=== PATIENT | female | born 1960 | race Two or more races ===

== ENCOUNTER 2021-11-29 01:44 | Inpatient (IN) | payer MEDICARE, OTHER ==
[~2021-11-29] VITALS: Ht 154.9 cm; Wt 62.6 kg
[2021-11-29 04:50] VITALS: BP 153/88
--- NOTE | 2021-11-29 04:50 | NUR ---
GPS EXPLOSIVE ORDNANCE HANDLER NOTES: ADMITTED A 61-Y/O, FEMALE, FROM [facility]. ADMITTED ON 5150 FOR DTS/GD. PER HOLD, PATIENT WAS CONFUSED, DISORIENTED, DOES NOT KNOW WHERE SHE LIVES, HAS NOT BEEN TAKING HER MEDICATIONS. PT. ADMITS TO HEARING VOICES. UPON FACE TO FACE ASSESSMENT, PATIENT IS ALERT AND ORIENTED X2, ANXIOUS, HYPERACTIVE, HYPERVERBAL, DISORGANIZED, CONFUSED, HER SPEECH IS PRESSURED AND EYE CONTACT IS INTENSE. DENIED SI/HI/AVH AT THIS TIME. SKIN ASSESSMENT DONE. SKIN IS CLEAR. HANDBOOK AND PRESCRIPTION MEDICATIONS GUIDE GIVEN TO PATIENT. PATIENT HAS BEEN ORIENTED TO UNIT POLICY. BELONGINGS WERE INVENTORIED AND CHECKED FOR CONTRABAND. PATIENT REFUSED TO SIGN ALL ADMISSION PAPER WORKS. PATIENT IS UNDER THE PSYCHIATRIC CARE OF DR. SANTILLAN AND MEDICAL CARE OF DR. SMITH. BED IN LOW AND LOCKED POSITION. SIDE RAILS UP X2. SAFETY PRECAUTIONS MAINTAINED. WILL CONTINUE TO MONITOR Q15 MINS FOR MOOD, SAFETY AND BEHAVIOR. CONTACTED BATSHEVA SY NEXT OF KIN AT [phone] BUT UNABLE TO LEAVE VOICE MESSAGE. VOICEMAIL IS FULL. WILL ENDORSE TO DAY SHIFT NURSE FOR CONTINUITY OF CARE.
[2021-11-29] MEDS ORDERED: MAGNESIUM HYDROXIDE 30 ML UDC PO PRN (05:30)
[2021-11-29] MEDS ORDERED: MAG HYDROX/AL HYDROX/SIMETH 30 ML UDC PO PRN (05:30)
[2021-11-29] MEDS ORDERED: BLOOD SUGAR DIAGNOSTIC 1 EACH STRIP IN ONE (05:30)
[2021-11-29] MEDS ORDERED: LORAZEPAM 0.5 MG TABLET PO PRN (05:30)
[2021-11-29] MEDS ORDERED: ACETAMINOPHEN 325 MG TABLET PO PRN (05:30)
[2021-11-29] MEDS ORDERED: TRAZ-257 PO (06:37)
[2021-11-29] MEDS ORDERED: AMLO-212 PO (06:37)
[2021-11-29] MEDS ORDERED: ARIP10TA9 PO (06:37)
[2021-11-29] MEDS ORDERED: DIPH50CA4 PO (06:37)
[2021-11-29] MEDS ORDERED: DIVA-78 PO (06:37)
[2021-11-29] MEDS ORDERED: BENZ1TAB7 PO (06:37)
[2021-11-29] MEDS ORDERED: OXCA300T15 PO (06:37)
[2021-11-29] MEDS ORDERED: ESCI10TA PO (06:37)
[2021-11-29] MEDS ORDERED: ARIP1064 IM (06:37)
[2021-11-29 08:00] VITALS: BP 153/90
--- NOTE | 2021-11-29 09:14 | NUR ---
GRACY Clinical Note: Patient placed on a 5150 hold for danger to herself and GD. Patient has been having visual/auditory hallucinations and has not been taking her medications at home. Patient currently states that she lives at home located at [address], [place] [address]; ([phone]). Pt would want to return back home upon dc.
--- NOTE | 2021-11-29 09:14 | NUR ---
GRACY Initial Discharge Plan: Patient currently states that she lives at home located at [address] [place] [address]; ([phone]). Pt would want to return back home upon dc. GRACY will work with the MD, treatment team, and family to help coordinate appropriate dishcharge.
--- NOTE | 2021-11-29 09:57 | NUR ---
Treatment Plan: Pt refused to sign treatment plan and was very paranoid.
--- NOTE | 2021-11-29 11:02 | NUR ---
GRACY Family: SW contacted pt's brother Nicanor ([phone]) and spoke to him briefly notifying that pt is at [facility]. He stated he will contact this feature writer after his meeting.
[2021-11-29] MEDS: DIVALPROEX SODIUM 500 MG TABLET.DR PO SCH ×2 (13:52→21:40)
[2021-11-29 16:00] VITALS: BP 128/70
[2021-11-29] MEDS: ARIPIPRAZOLE 5 MG TABLET PO SCH (16:26)
[2021-11-29] MEDS: BENZTROPINE MESYLATE (1 MG) 1 MG TABLET PO SCH (16:26)
[2021-11-29] MEDS: OXCARBAZEPINE 150 MG TABLET PO SCH (16:26)
--- NOTE | 2021-11-29 17:49 | NUR ---
RN-NOTES PATIENT IN THE ROOM AWAKE,ALERT X1 GUARDED,PATIENT NOTED WITH EASILY ANGRY BEHAVIOR ,DEMANDING WITH EPISODE OF TALKING, SINGING TO SELF. PATIENT VERBALIZED HEARING VOICES BUT SHE CANNOT TELL ME WHAT ARE THE VOICES ARE. NEEDS FREQUENT REDIRECTIONS AND REASSURANCE. COMPLIANT WITH MEDICATIONS.ALL NEEDS ATTENDED AND ANTICIPATED. WILL CONT. MONITORING FOR SAFETY AND BEHAVIOR. AMBULATORY STEADY GAIT.WILL ENDORSE TO INCOMING NURSE FOR CONTINUITY OF CARE.
--- NOTE | 2021-11-29 19:46 | NUR ---
GPS RN OPENING NOTES: RECEIVED PATIENT AMBULATING IN HALLWAY, A/O X1. APPROPRIATE AFFECT, LABILE, HYPERVERBAL, DISORGANIZED, DISORIENTED, CONFUSED, LOOSE ASSOCIATIONS, RESTLESS, ANXIOUS, RESPONDING TO INTERNAL STIMULI. DENIES PAIN, DENIES SI AT THIS TIME. NO S/S OF DISTRESS. RESPIRATION EVEN AND UNLABORED WITH EQUAL RISE AND FALL OF THE CHEST, ON ROOM AIR. OFFERED FLUID AND SNACKS TOLERATED. WILL CONTINUE TO MONITOR Q15 FOR MOOD, SAFETY AND BEHAVIOR.
[2021-11-29 20:00] VITALS: BP 148/75
[2021-11-29] MEDS: TEMAZEPAM 7.5 MG CAPSULE PO PRN (22:08)
--- NOTE | 2021-11-29 22:09 | NUR ---
GPS RN NOTES: PATIENT REQUESTED FOR SLEEP MEDICATION. RESTORIL 7.5MG GIVEN PO AT [phone]. WILL CONTINUE TO MONITOR.
[2021-11-30 07:12] LABS: ALBUMIN 3.2 g/dL (3.4-5.0); BILIRUBIN,TOTAL 0.3 mg/dL (0.2-1.0); CALCIUM, SERUM 8.6 mg/dL (8.5-10.1); CREATININE 0.7 mg/dL (0.6-1.3); POTASSIUM 3.8 mmol/L (3.5-5.1); TOTAL PROTEIN, SERUM 6.8 g/dL (6.4-8.2)
[2021-11-30 07:18] LABS: CHOLESTEROL 226 mg/dL (<200); HDL CHOLESTEROL 77 mg/dL (40-60); LDL 122 mg/dL (0-99); TRIGLYCERIDES 116 mg/dL (30-150)
[2021-11-30 08:00] VITALS: BP 128/76
[2021-11-30] MEDS: DIVALPROEX SODIUM 500 MG TABLET.DR PO SCH ×2 (08:17→20:41)
[2021-11-30] MEDS: OXCARBAZEPINE 150 MG TABLET PO SCH ×2 (08:17→16:25)
[2021-11-30] MEDS: BENZTROPINE MESYLATE (1 MG) 1 MG TABLET PO SCH ×2 (08:17→16:25)
[2021-11-30] MEDS: ARIPIPRAZOLE 5 MG TABLET PO SCH ×2 (08:17→16:25)
[2021-11-30] MEDS: AMLODIPINE BESYLATE 5 MG TABLET PO SCH (08:19)
--- NOTE | 2021-11-30 11:40 | NUR ---
GRACY Family Contact: GRACY spoke with patient's brother Nicanor ([phone]) who wants pt to placed at a nursing facility. He stated that he is searching for a facility of his own and will let this racebook writer know which one by 12/04. GRACY gave him options he reported first he would want to try facilities nearby him before this racebook writer finding facilities in the [place] location.
--- NOTE | 2021-11-30 15:10 | NUR ---
RN-NOTES PATIENT WAS FOUND SITTING IN ROOM [address]B DOOR. PER PATIENT SHE TRIPPED FROM HER SHOES AND HIT HER LEFT UPPER ARM ON THE ROOM DOOR . PATIENT WAS ASSISTED UP BY TWO STAFF. PATIENT COMPLAINED PAIN ON L UPPER ARM AND BILATERAL FOOT. OFFERED TYLENOL BUT PATIENT'S STATED" NO NEED FOR TYLENOL, I'M OK". PATIENT ABLE TO AMBULATE WITH STEADY GAIT. NO SKIN TEAR OR DISCOLORATION NOTED ON THE SAID SITES.LUMBER STRAIGHTENED, PROJECT ARCHITECT, DR. SANTILLAN (PSYCHIATRIST) ,MADE AWARE OF THE INCIDENT.LISSETTE GRAY ( COMMODITY LOAN CLERK) T.O ORDER OF X-RAY ON LEFT UPPER ARM AND BILATERAL FOOT. PATIENT'S BROTHER AVELINO SHEN WAS MADE AWARE. WILL CONT. MONITORING FOR ANY ADVERSE CHANGES.
[2021-11-30 16:00] VITALS: BP 132/54
--- NOTE | 2021-11-30 18:10 | NUR ---
RN-NOTES PATIENT LAYING IN BED INTERMITTENTLY SLEEPING,EASILY AROUSED ,DENIES ANY DISCOMFORT AT THIS TIME. NO ACUTE DISTRESS NOTED .COMPLIANT WITH MEDICATIONS.PATIENT IS AMBULATORY STEADY GAIT. ALL NEEDS ATTENDED AND ANTICIPATED. WILL CONT. MONITORING FOR SAFETY AND BEHAVIOR. WILL ENDORSE TO INCOMING NURSE FOR CONTINUITY OF CARE.
--- NOTE | 2021-11-30 19:30 | NUR ---
GPS RN OPENING NOTES: RECEIVED PATIENT AMBULATING IN HALLWAY, A/O X1-2. APPROPRIATE AFFECT, LABILE, DISORGANIZED, DISORIENTED, CONFUSED, LOOSE ASSOCIATIONS, RESTLESS, ANXIOUS, NEEDY. ABLE TO FOLLOW REDIRECTION. PATIENT GIVEN WALKER TO AMBULATE D/T UNSTEADY GAIT. DENIES PAIN, DENIES SI AT THIS TIME. NO S/S OF DISTRESS. RESPIRATION EVEN AND UNLABORED WITH EQUAL RISE AND FALL OF THE CHEST, ON ROOM AIR. OFFERED FLUID AND SNACKS TOLERATED. WILL CONTINUE TO MONITOR Q15 FOR MOOD, SAFETY AND BEHAVIOR.
[2021-11-30 20:00] VITALS: BP 137/67
--- NOTE | 2021-12-01 06:49 | NUR ---
GPS RN CLOSING NOTES: PATIENT AWAKE, A/O X-2. PATIENT SLEPT 8HRS THIS SHIFT. NO S/S OF DISTRESS. RESPIRATION EVEN AND UNLABORED WITH EQUAL RISE AND FALL OF THE CHEST, ON ROOM AIR. ALL PATIENT CARE NEEDS HAVE BEEN MET ANTICIPATED. WILL CONTINUE TO MONITOR Q15 FOR SAFETY, MOOD AND BEHAVIOR AND ENDORSE TO AM SHIFT.
[2021-12-01 08:00] VITALS: BP 137/79
--- NOTE | 2021-12-01 08:46 | NUR ---
SNF Referral: GRACY sent clinicals to CJ admin from [facility] ([phone]) for placement. SW sent H & P, progress notes, and medication list.
[2021-12-01] MEDS: BENZTROPINE MESYLATE (1 MG) 1 MG TABLET PO SCH ×2 (09:00→17:05)
[2021-12-01] MEDS: OXCARBAZEPINE 150 MG TABLET PO SCH ×3 (09:00→17:05)
[2021-12-01] MEDS: ARIPIPRAZOLE 5 MG TABLET PO SCH ×2 (09:00→17:05)
[2021-12-01] MEDS: DIVALPROEX SODIUM 500 MG TABLET.DR PO SCH ×2 (09:00→20:56)
[2021-12-01] MEDS: AMLODIPINE BESYLATE 5 MG TABLET PO SCH (09:01)
--- NOTE | 2021-12-01 09:19 | NUR ---
SNF Contact: SW received a call from admin from [facility] ([phone]) who stated pt is accepted.
--- NOTE | 2021-12-01 14:10 | NUR ---
Assumed Care: Pt. is in the dining room, disorganized, needy, argumentative and confused. Needs attended and will continue to monitor for safety.
--- NOTE | 2021-12-01 15:12 | NUR ---
Pt. denies abdomen pain at this time and said she ok. Urine collected and sent to labs.
[2021-12-01 16:00] VITALS: BP 130/67
--- NOTE | 2021-12-01 16:30 | NUR ---
GPS RN NOTES RECEIVED REPORT AND ASSUMED CARE OF THIS PATIENT WHO IS LAYING IN BED WITH NO AGITATION AT THIS TIME. WILL CONTINUE TO MONITOR.
--- NOTE | 2021-12-01 19:00 | NUR ---
GPS RN CLOSING NOTES PATIENT ALERT AND ORIENTED, NO COMPLAINTS OF PAIN OR DISCOMFORT AT THIS TIME, WALKING IN HALLWAY. ALL NEEDS MET. REPORT GIVEN TO FURNITURE AND BEDDING INSPECTOR FOR KATELYNN.
--- NOTE | 2021-12-01 19:40 | NUR ---
GPS RN OPENING NOTES: RECEIVED PATIENT IN ROOM CHATTING WITH VISITOR, A/O X2. APPROPRIATE AFFECT, DISORGANIZED. ABLE TO FOLLOW REDIRECTION. DENIES V/A HALLUCINATIONS. DENIES PAIN, DENIES SI AT THIS TIME. NO S/S OF DISTRESS. RESPIRATION EVEN AND UNLABORED WITH EQUAL RISE AND FALL OF THE CHEST, ON ROOM AIR. OFFERED FLUID AND SNACKS TOLERATED. WILL CONTINUE TO MONITOR Q15 FOR MOOD, SAFETY AND BEHAVIOR.
[2021-12-01 20:00] VITALS: BP 157/74
[2021-12-02 06:29] LABS: BASOPHILS % (AUTO) 0.6 % (0.0-2.0); EOSINOPHILS % (AUTO) 4.4 % (0.0-6.0); HEMATOCRIT 39 % (33-45); HEMOGLOBIN 12.7 g/dL (11.5-14.8); LYMPHOCYTES # (AUTO) 3.1 K/uL (0.8-4.8); LYMPHOCYTES % (AUTO) 43.9 % (20.0-44.0); MEAN CORPUSCULAR HGB CONC 33 g/dl (31.0-36.0); MEAN CORPUSCULAR VOLUME 89 fL (82-100); MONOCYTES # (AUTO) 0.5 K/uL (0.1-1.30); MONOCYTES % (AUTO) 7.8 % (2.0-12.0); NEUTROPHILS % (AUTO) 43.3 % (43.0-81.0); PLATELET COUNT (AUTO) 354 K/uL (150-450); RED BLOOD CELL COUNT(AUTO) 4.36 MIL/uL (4.0-5.2)
--- NOTE | 2021-12-02 06:44 | NUR ---
GPS RN CLOSING NOTES: PATIENT IS AWAKE, A/O X-2. AMBULATING IN HALLWAY. PATIENT SLEPT 7HRS THIS SHIFT. NO S/S OF DISTRESS. RESPIRATION EVEN AND UNLABORED WITH EQUAL RISE AND FALL OF THE CHEST, ON ROOM AIR. ALL PATIENT CARE NEEDS HAVE BEEN MET ANTICIPATED. WILL CONTINUE TO MONITOR Q15 FOR SAFETY, MOOD AND BEHAVIOR AND ENDORSE TO AM SHIFT.
[2021-12-02 07:17] LABS: ALBUMIN 3.6 g/dL (3.4-5.0); BILIRUBIN,TOTAL 0.2 mg/dL (0.2-1.0); CALCIUM, SERUM 8.6 mg/dL (8.5-10.1); CREATININE 0.9 mg/dL (0.6-1.3); TOTAL PROTEIN, SERUM 7.7 g/dL (6.4-8.2)
[2021-12-02 08:00] VITALS: BP 141/72
[2021-12-02] MEDS: DIVALPROEX SODIUM 500 MG TABLET.DR PO SCH ×2 (08:29→20:04)
[2021-12-02] MEDS: BENZTROPINE MESYLATE (1 MG) 1 MG TABLET PO SCH ×2 (08:29→16:25)
[2021-12-02] MEDS: OXCARBAZEPINE 150 MG TABLET PO SCH ×3 (08:29→16:25)
[2021-12-02] MEDS: ARIPIPRAZOLE 5 MG TABLET PO SCH ×2 (08:29→16:25)
[2021-12-02] MEDS: AMLODIPINE BESYLATE 5 MG TABLET PO SCH (08:30)
[2021-12-02 16:00] VITALS: BP 145/54
--- NOTE | 2021-12-02 18:10 | NUR ---
RN-NOTES PATIENT VISIBLE IN THE UNIT A/O X2 ,GUARDED NO ACUTE DISTRESS NOTED .COMPLIANT WITH MEDICATIONS.PATIENT IS AMBULATORY WITH WALKER. NOTED PATIENT WITH HYPERVERBAL, NEEDY,FORGETFUL BEHAVIOR. NEEDS FREQUENT REDIRECTIONS AND INSTRUCTIONS. ALL NEEDS ATTENDED AND ANTICIPATED. WILL CONT. MONITORING FOR SAFETY AND BEHAVIOR. WILL ENDORSE TO INCOMING NURSE FOR CONTINUITY OF CARE.
[2021-12-02 20:16] VITALS: BP 145/69
[2021-12-03 08:00] VITALS: BP 145/76
--- NOTE | 2021-12-03 08:00 | NUR ---
RN OPENING NOTES: RECEIVED PATIENT IN ROOM EATING BREAKFAST, A/O X2-3. APPROPRIATE AFFECT. ABLE TO FOLLOW DIRECTION. DENIES V/A HALLUCINATIONS. DENIES PAIN, DENIES SI AT THIS TIME. NO S/S OF DISTRESS. RESPIRATION EVEN AND UNLABORED WITH EQUAL RISE AND FALL OF THE CHEST, ON ROOM AIR. WILL CONTINUE TO MONITOR FOR MOOD, SAFETY AND BEHAVIOR.
[2021-12-03] MEDS: AMLODIPINE BESYLATE 5 MG TABLET PO SCH (08:45)
[2021-12-03] MEDS: OXCARBAZEPINE 150 MG TABLET PO SCH ×3 (08:45→17:05)
[2021-12-03] MEDS: ARIPIPRAZOLE 5 MG TABLET PO SCH ×2 (08:45→17:00)
[2021-12-03] MEDS: DIVALPROEX SODIUM 500 MG TABLET.DR PO SCH ×2 (08:46→20:06)
[2021-12-03] MEDS: BENZTROPINE MESYLATE (1 MG) 1 MG TABLET PO SCH ×2 (08:46→17:05)
[2021-12-03 16:00] VITALS: BP 153/75
--- NOTE | 2021-12-03 17:41 | NUR ---
RN NOTES- PT REFUSED ABILIFY PATIENT REFUSED ABILIFY AT 17:00, RN EXPLAINED RISK AND BENEFITS, PATIENT STILL REFUSED. WILL CONTINUE TO MONITOR.
[2021-12-03 20:05] VITALS: BP 144/74
[2021-12-03] MEDS: TEMAZEPAM 7.5 MG CAPSULE PO PRN (23:08)
--- NOTE | 2021-12-03 23:08 | NUR ---
RN NOTES ADMINISTERED TEMAZEPAM FOR INSOMNIA. VS WNL. WILL CONTINUE TO MONITOR.
[2021-12-04 08:00] VITALS: BP 152/70
[2021-12-04] MEDS: DIVALPROEX SODIUM 500 MG TABLET.DR PO SCH ×2 (08:09→21:28)
[2021-12-04] MEDS: AMLODIPINE BESYLATE 5 MG TABLET PO SCH (08:09)
[2021-12-04] MEDS: ARIPIPRAZOLE 5 MG TABLET PO SCH (08:09)
[2021-12-04] MEDS: OXCARBAZEPINE 150 MG TABLET PO SCH ×3 (08:10→17:24)
[2021-12-04] MEDS: BENZTROPINE MESYLATE (1 MG) 1 MG TABLET PO SCH (08:10)
--- NOTE | 2021-12-04 09:32 | NUR ---
RN-CO: PATIENT IS RESTLESS BUT COMPLIANT WITH MEDICATIONS. FOCUS ON MEDICATIONS. PREOCCUPIED WITH HER OWN THOUGHTS. ANXIOUS AND CONSTANTLY ASKING IRRELIVANT QUESTIONS. NOTED TALKING TO UNSEEN OTHERS.I WILL CONTINUE TO MONITOR.
[2021-12-04] MEDS ORDERED: diphenhydrAMINE HCL 50 MG CAPSULE PO PRN (11:30)
--- NOTE | 2021-12-04 15:28 | NUR ---
Court Notification: SW contacted pt's brother Nicanor ([phone]) and left a voicemail of pt's 1157 hearing today.
[2021-12-04 16:00] VITALS: BP 151/68
--- NOTE | 2021-12-04 16:18 | NUR ---
Court Hearing: Patient's court hearing for [id number] was today and it was upheld for GD.
--- NOTE | 2021-12-04 19:40 | NUR ---
GPS RN NOTES: RECEIVED PATIENT IN ROOM, A/O X2. APPROPRIATE AFFECT, DISORGANIZED, RESPONDING TO INTERNAL STIMULI. REORIENTED PATIENT TO PRESENT SITUATION. DENIES PAIN, DENIES SI AT THIS TIME. NO S/S OF DISTRESS. RESPIRATION EVEN AND UNLABORED WITH EQUAL RISE AND FALL OF THE CHEST, ON ROOM AIR. OFFERED FLUID AND SNACKS TOLERATED. BED IN LOW LOCKED POSITION, SIDE RAILS UP X2 FOR SAFETY. WILL CONTINUE TO MONITOR Q15 FOR MOOD, SAFETY AND BEHAVIOR.
[2021-12-04 20:38] VITALS: BP 140/55
[2021-12-05 08:00] VITALS: BP 134/69
[2021-12-05] MEDS: DIVALPROEX SODIUM 500 MG TABLET.DR PO SCH ×2 (08:09→21:06)
[2021-12-05] MEDS: AMLODIPINE BESYLATE 5 MG TABLET PO SCH (08:09)
[2021-12-05] MEDS: OXCARBAZEPINE 150 MG TABLET PO SCH ×3 (08:09→16:41)
--- NOTE | 2021-12-05 10:19 | NUR ---
RN-CO: PATIENT IS RESTLESS IN AM, PREOCCUPIED OF HER OUTPATIENT DOCTOR AND HER MEDICATIONS. IMPULSIVE BUT REDIRECTABLE. MUMBLING TO SELF AND TALKING TO UNSEEN OTHERS.SEEN BY DR SANTILLAN AND CHANGED HER MEDICATIONS.I WILL MONITOR.
[2021-12-05] MEDS: risperiDONE 1 MG TABLET PO SCH ×2 (10:31→16:41)
--- NOTE | 2021-12-05 13:58 | NUR ---
RN-CO: Patient is positive of covid, Dr Olson and Dr Gould made aware. Dr Gould ordered to isolate pt , Robitussin 5 ml q 4 hr PRN, CXR. Noted and carried out. RN line installation supervisor and director was notified.
[2021-12-05 16:00] VITALS: BP 146/67
[2021-12-05] MEDS: BENZTROPINE MESYLATE (1 MG) 1 MG TABLET PO SCH (16:41)
[2021-12-05] MEDS: GUAIFENESIN/CODEINE 10 ML UDC PO PRN (17:42)
--- NOTE | 2021-12-05 17:43 | NUR ---
RN-CO: Robitussin 5 ml given for c/o cough.
[2021-12-05 20:20] VITALS: BP 139/56
[2021-12-06 08:00] VITALS: BP 146/73
[2021-12-06] MEDS: OXCARBAZEPINE 150 MG TABLET PO SCH ×3 (08:52→16:31)
[2021-12-06] MEDS: DIVALPROEX SODIUM 500 MG TABLET.DR PO SCH ×2 (08:52→20:40)
[2021-12-06] MEDS: BENZTROPINE MESYLATE (1 MG) 1 MG TABLET PO SCH ×2 (08:53→16:31)
[2021-12-06] MEDS: risperiDONE 1 MG TABLET PO SCH ×2 (08:53→16:31)
[2021-12-06] MEDS: AMLODIPINE BESYLATE 5 MG TABLET PO SCH (08:53)
[2021-12-06] MEDS: GUAIFENESIN/CODEINE 10 ML UDC PO PRN (12:22)
--- NOTE | 2021-12-06 12:22 | NUR ---
RN-NOTES NOTED PATIENT COUGHING, ROBITUSSIN AC SYRUP 5ML GIVEN PRN ORDER.
--- NOTE | 2021-12-06 13:25 | NUR ---
RN -NOTES PATIENT SLEEPING WITH BREATHING EVEN AND NONLABORED EASILY AROUSED. NO ACUTE DISTRESS NOTED.
[2021-12-06 16:00] VITALS: BP 145/72
--- NOTE | 2021-12-06 18:17 | NUR ---
RN-NOTES PATIENT IN THE ROOM,A/O X2 FORGETFUL, CALM AND COOPERATIVE. PATIENT ABLE TO MAKE NEEDS KNOWN TO THE STAFF. COMPLIANT WITH MEDICATIONS,NO ACUTE DISTRESS NOTED.AIRBORNE AND CONTACT ISOLATION STRICTLY OBSERVED. AMBULATORY STEADY GAIT.WILL CONT. MONITORING FOR SAFETY AND BEHAVIOR. WILL ENDORSE TO INCOMING NURSE FOR CONTINUITY OF CARE.
[2021-12-06 20:00] VITALS: BP 130/56
[2021-12-07 08:00] VITALS: BP 110/63
[2021-12-07] MEDS: DIVALPROEX SODIUM 500 MG TABLET.DR PO SCH ×2 (08:41→21:24)
[2021-12-07] MEDS: BENZTROPINE MESYLATE (1 MG) 1 MG TABLET PO SCH ×2 (08:41→17:14)
[2021-12-07] MEDS: AMLODIPINE BESYLATE 5 MG TABLET PO SCH (08:41)
[2021-12-07] MEDS: risperiDONE 1 MG TABLET PO SCH ×2 (08:41→17:14)
[2021-12-07] MEDS: OXCARBAZEPINE 150 MG TABLET PO SCH ×3 (08:41→17:14)
[2021-12-07 16:00] VITALS: BP 135/76
--- NOTE | 2021-12-07 17:35 | NUR ---
RN-NOTES PATIENT IN THE ROOM,A/O X2 FORGETFUL, CALM AND COOPERATIVE. PATIENT ABLE TO MAKE NEEDS KNOWN TO THE STAFF. COMPLIANT WITH MEDICATIONS,NO ACUTE DISTRESS NOTED.ON AIRBORNE AND CONTACT ISOLATION FOR COVID POSITIVE. AMBULATORY STEADY GAIT. ALL NEEDS ATTENDED AND ANTICIPATED. WILL CONT. MONITORING FOR SAFETY AND BEHAVIOR. WILL ENDORSE TO INCOMING NURSE FOR CONTINUITY OF CARE.
[2021-12-07 20:00] VITALS: BP 133/66
[2021-12-07] MEDS: GUAIFENESIN/CODEINE 10 ML UDC PO PRN (22:27)
--- NOTE | 2021-12-08 06:05 | NUR ---
RN-NOTES PATIENT RESTING IN HER ROOM, FORGETFUL, CALM AND COOPERATIVE IN SHIFT. COMPLIANT WITH MEDICATIONS,NO ACUTE DISTRESS , PT.ON AIRBORNE AND CONTACT ISOLATION FOR COVID POSITIVE. SAFETY PRECAUTIONS IN PLACED, ALL NEEDS ATTENDED AND ANTICIPATED. WILL CONT. MONITORING FOR SAFETY AND BEHAVIOR. WILL ENDORSE TO INCOMING NURSE FOR CONTINUITY OF CARE.
[2021-12-08 08:00] VITALS: BP 148/70
[2021-12-08] MEDS: AMLODIPINE BESYLATE 5 MG TABLET PO SCH (08:27)
[2021-12-08] MEDS: OXCARBAZEPINE 150 MG TABLET PO SCH ×3 (08:27→17:02)
[2021-12-08] MEDS: DIVALPROEX SODIUM 500 MG TABLET.DR PO SCH ×2 (08:27→21:06)
[2021-12-08] MEDS: BENZTROPINE MESYLATE (1 MG) 1 MG TABLET PO SCH ×2 (08:28→17:02)
[2021-12-08] MEDS: risperiDONE 1 MG TABLET PO SCH ×2 (08:28→17:02)
--- NOTE | 2021-12-08 09:00 | NUR ---
RN NOTE- RECEIVED PATIENT AWAKE, ALERT X1,GUARDED, FORGETFUL, CONFUSED,NOTED WITH EPISODE OF TALKING TO SELF.NEED REDIRECTIONS AND REASSURANCE.COMPLIANT WITH MEDICATIONS.ALL NEEDS ATTENDED AND ANTICIPATED. WILL CONT. MONITORING FOR SAFETY AND BEHAVIOR.ON AIRBORNE AND CONTACT ISOLATION OBSERVED.
[2021-12-08 16:00] VITALS: BP 150/72
[2021-12-08 20:25] VITALS: BP 139/62
[2021-12-09 08:00] VITALS: BP 110/63
[2021-12-09] MEDS: DIVALPROEX SODIUM 500 MG TABLET.DR PO SCH ×2 (09:00→21:11)
[2021-12-09] MEDS: risperiDONE 1 MG TABLET PO SCH ×2 (09:00→17:00)
[2021-12-09] MEDS: AMLODIPINE BESYLATE 5 MG TABLET PO SCH (09:00)
[2021-12-09] MEDS: OXCARBAZEPINE 150 MG TABLET PO SCH ×3 (09:00→17:00)
[2021-12-09] MEDS: BENZTROPINE MESYLATE (1 MG) 1 MG TABLET PO SCH ×2 (09:00→17:00)
[2021-12-09 16:04] VITALS: BP 130/69
[2021-12-09 20:07] VITALS: BP 136/69
[2021-12-10 08:00] VITALS: BP 150/74
[2021-12-10] MEDS: BENZTROPINE MESYLATE (1 MG) 1 MG TABLET PO SCH ×2 (09:23→17:31)
[2021-12-10] MEDS: AMLODIPINE BESYLATE 5 MG TABLET PO SCH (09:23)
[2021-12-10] MEDS: risperiDONE 1 MG TABLET PO SCH ×2 (09:23→17:30)
[2021-12-10] MEDS: OXCARBAZEPINE 150 MG TABLET PO SCH ×3 (09:23→17:31)
[2021-12-10] MEDS: DIVALPROEX SODIUM 500 MG TABLET.DR PO SCH ×2 (09:23→23:26)
[2021-12-10 16:00] VITALS: BP 152/73
--- NOTE | 2021-12-10 19:50 | NUR ---
GPS RN NOTE RECEIVED PATIENT IN BED; AWAKE, ALERT X1, GUARDED AND CONFUSED. ON AIRBORNE AND CONTACT ISOLATION OBSERVED. NEED REDIRECTIONS AND REASSURANCE. COMPLIANT WITH MEDICATIONS. ALL NEEDS ATTENDED AND ANTICIPATED. WILL CONTINUE MONITORING FOR SAFETY AND BEHAVIOR.
[2021-12-10 20:00] VITALS: BP 148/70
--- NOTE | 2021-12-11 07:30 | NUR ---
PT RECEIVED RESTING COMFORTABLY IN BED. NO S/S OR C/O PAIN OR DISTRESS NOTED. SIDE RAILS UP X2. WILL CONTINUE PLAN OF CARE.
[2021-12-11 08:00] VITALS: BP 146/75
[2021-12-11] MEDS: BENZTROPINE MESYLATE (1 MG) 1 MG TABLET PO SCH ×2 (09:35→16:40)
[2021-12-11] MEDS: DIVALPROEX SODIUM 500 MG TABLET.DR PO SCH ×2 (09:35→21:46)
[2021-12-11] MEDS: OXCARBAZEPINE 150 MG TABLET PO SCH ×3 (09:35→16:40)
[2021-12-11] MEDS: risperiDONE 1 MG TABLET PO SCH ×2 (09:36→16:40)
[2021-12-11] MEDS: AMLODIPINE BESYLATE 5 MG TABLET PO SCH (09:36)
--- NOTE | 2021-12-11 11:17 | NUR ---
GRACY Family Contact: GRACY spoke with patient's brother Nicanor ([phone]) and notified that pt is accepted at [facility]. He is agreeable of this.
[2021-12-11 16:00] VITALS: BP 142/92
--- NOTE | 2021-12-11 18:05 | NUR ---
CHANGE OF SHIFT REPORT PT RESTING COMFORTABLY IN BED. NO S/S OR C/O PAIN OR DISTRESS NOTED. SIDE RAILS UP X2, PT KEPT CLEAN DRY AND COMFORTABLE. NO SIGNIFICANT CHANGE SINCE PREVIOUS SHIFT. WILL GIVE REPORT TO ADALBERTO GRIFFITHS.
[2021-12-11 20:00] VITALS: BP 149/73
[2021-12-12 08:00] VITALS: BP 99/64
[2021-12-12] MEDS: AMLODIPINE BESYLATE 5 MG TABLET PO SCH (09:00)
[2021-12-12] MEDS: BENZTROPINE MESYLATE (1 MG) 1 MG TABLET PO SCH ×2 (09:28→17:22)
[2021-12-12] MEDS: OXCARBAZEPINE 150 MG TABLET PO SCH ×3 (09:28→17:22)
[2021-12-12] MEDS: DIVALPROEX SODIUM 500 MG TABLET.DR PO SCH ×2 (09:28→21:51)
[2021-12-12] MEDS: risperiDONE 1 MG TABLET PO SCH ×2 (09:28→17:22)
[2021-12-12 16:12] VITALS: BP 99/68
[2021-12-12 20:23] VITALS: BP 152/75
[2021-12-13 08:00] VITALS: BP 143/73
[2021-12-13] MEDS: BENZTROPINE MESYLATE (1 MG) 1 MG TABLET PO SCH ×2 (08:38→17:38)
[2021-12-13] MEDS: AMLODIPINE BESYLATE 5 MG TABLET PO SCH (08:39)
[2021-12-13] MEDS: DIVALPROEX SODIUM 500 MG TABLET.DR PO SCH ×2 (08:39→21:30)
[2021-12-13] MEDS: OXCARBAZEPINE 150 MG TABLET PO SCH ×3 (08:39→17:38)
[2021-12-13] MEDS: risperiDONE 1 MG TABLET PO SCH ×2 (08:39→17:38)
--- NOTE | 2021-12-13 10:44 | NUR ---
RN-CO: PATIENT IN HER ROOM , OBSERVING ISOLATION FOR COVID AND WEARING MASK. SHE IS CALM AND COOPERATIVE, SHE DENIED SOB AND STATED THAT HER COUGH IS GETTING BETTER. SHE KEEPS HER SELF busy by making drawings.
[2021-12-13 16:00] VITALS: BP 140/84
--- NOTE | 2021-12-13 19:30 | NUR ---
GPS RN NOTE, RECEIVED PATIENT AWAKE AND IN BED, NO S/S OR COMPLAINTS OF PAIN AT THIS TIME. PATIENT IS DISPLAYING NO S/S OF APPARENT DISTRESS AT THIS TIME. PATIENT BREATHING IS UNLABORED WITH EQUAL RISE AND FALL OF THE CHEST. PATIENT IS ALERT AND ORIENTED X 2-3 ON ROOM AIR WITH A SPO2 96%. PATIENT IS COMPLIANT WITH MEDICATIONS, ANXIOUS, ISOLATIVE, MAKES NEEDS KNOWN, DISORGANIZED, AND COOPERATIVE. PATIENT IS ON ISOLATION PRECAUTIONS. PATIENT DENIES SUICIDAL AND HOMICIDAL IDEATIONS AT THIS TIME. PATIENT ASSISTED WITH TURNING AND REPOSITIONING Q2HR AND PRN FOR COMFORT AND CIRCULATION. PATIENT HAS NO NEEDS AT THIS TIME. PATIENT EDUCATED ON THE USE OF THE CALL JONES. PATIENT BED SIDE RAILS UP X 2 FOR SAFETY. PATIENT BED IS LOCKED, LOW, WITH BED ALARM ON. WILL CONTINUE TO MONITOR THIS PATIENT Q15 MINUTES WITH THE HELP OF STAFF TO MAINTAIN SAFETY.
[2021-12-13 20:00] VITALS: BP 155/68
[2021-12-14 08:00] VITALS: BP 125/72
[2021-12-14] MEDS: AMLODIPINE BESYLATE 5 MG TABLET PO SCH (08:48)
[2021-12-14] MEDS: BENZTROPINE MESYLATE (1 MG) 1 MG TABLET PO SCH ×2 (08:48→16:37)
[2021-12-14] MEDS: risperiDONE 1 MG TABLET PO SCH ×2 (08:48→16:37)
[2021-12-14] MEDS: DIVALPROEX SODIUM 500 MG TABLET.DR PO SCH ×2 (08:48→21:48)
[2021-12-14] MEDS: OXCARBAZEPINE 150 MG TABLET PO SCH ×3 (08:49→16:38)
--- NOTE | 2021-12-14 10:00 | NUR ---
RN Notes: Received pt. awake in the room, on isolation and no distress and no agitation noted. Ate 100% for breakfast, compliant on meds. and advised to stay in room and encouraged to verbalize feelings. Needs attended and will continue to monitor for safety.
--- NOTE | 2021-12-14 11:28 | NUR ---
SW Note: Pt is covid positive and SW reached out to facilities: [facility], [facility], [facility], and [facility] who all stated that they cannot accept pt due to being covid positive.
--- NOTE | 2021-12-14 11:28 | NUR ---
GRACY Family Contact: SW spoke with patient's brother Nicanor ([phone]) and he stated that this caption writer spoke with him and mentioned that she got accepted at [facility] and was agreeable of this prior to pt being covid positive. SW stated that this caption writer has done research and the facilities are not accepting Tanisha due to being covid positive. Brother was not understanding of this.
--- NOTE | 2021-12-14 11:40 | NUR ---
GRACY Family Contact: GRACY spoke with patient's brother Nicanor ([phone]) and he apologized to this teletypewriter operator. He stated that he is agreeable of pt going to [facility]. He reported he was just anxious because his siblings out of the country are making this process worse for him.
[2021-12-14 16:15] VITALS: BP 154/74
[2021-12-14 20:00] VITALS: BP 149/71
--- NOTE | 2021-12-15 07:45 | NUR ---
GRACY Discharge Note: Patient will be discharged to assisted facility to [facility] [place] [address]; . Please arrange Ambulance transportation for patient to be picked up at 1PM. Siebel Solution Architect spoke with DAYANARA, Strip Mine Supervisor at [facility]; ([phone]), who stated patient will be accepted at facility today. Patient is alert and oriented x2. Patient denies any suicidal or homicidal ideations. Patient is aware and agreeable with discharge plans. Patients brother Nicanor ([phone]) is aware and agreeable. Patient will follow-up at the facility with Dr. Olson (Psychiatrist) [address], [place] [address]; ([phone])and (Television Antenna Installer) Dr. Chavarria located at [address], [place] [address]; . Patient presents with euthymic mood and congruent mood. Addendum: 12/15/21 at 1346 by GRACY MALIK facility has changed
[2021-12-15 08:00] VITALS: BP 148/72
[2021-12-15] MEDS: OXCARBAZEPINE 150 MG TABLET PO SCH ×2 (08:24→12:17)
[2021-12-15] MEDS: risperiDONE 1 MG TABLET PO SCH (08:24)
[2021-12-15] MEDS: DIVALPROEX SODIUM 500 MG TABLET.DR PO SCH (08:24)
[2021-12-15] MEDS: BENZTROPINE MESYLATE (1 MG) 1 MG TABLET PO SCH (08:24)
[2021-12-15 08:25] VITALS: BP 148/72
[2021-12-15] MEDS: AMLODIPINE BESYLATE 5 MG TABLET PO SCH (08:25)
--- NOTE | 2021-12-15 11:04 | NUR ---
Dr. Ford gave an order to d/c hold and d/inspector hairspring [facility], to continue same meds including prn and to follow p with psych and medical doctors. Pt. without distress, denies suicidal and homicidal. Dr. Marquez made aware of the discharge and reconciled the meds. Belongings ready and discharge papers ready.
--- NOTE | 2021-12-15 13:41 | NUR ---
Pt. will be discharged to [facility] and Dr. Ford made aware.
--- NOTE | 2021-12-15 13:41 | NUR ---
GRACY Family Contact: GRACY spoke with patient's brother Nicanor ([phone]) and notified that [facility] unable to take pt due to covid guidelines. He was understanding. GRACY stated pt is accepted at [facility] and he was agreeable of this.
--- NOTE | 2021-12-15 13:46 | NUR ---
SNF CONTACT: SW sent clinicals to [facility] ([phone]) who reviewed pt's clinicals and accepted pt.
--- NOTE | 2021-12-15 13:46 | NUR ---
SW DISCHARGE UPDATE: Patient will be discharged to [facility] located at [id number] [place] [id number]; ([phone]) via ambulance. Crystal lama from [facility] accepted pt and is welcoming pt today. Patients brother Nicanor ([phone]) is aware and agreeable. Patient appears to be alert and oriented x3 and is willing to go to the nursing facility. Pt denies visual/auditory hallucinations. Pt denies suicidal or homicidal ideation. Patient will follow-up with (psychiatrist) Dr. Olson [address], [place] [address]; ([phone]). Patient will follow up with (double corner cutter) Dr. Gould [address], [place] [address]; ([phone]). Patient presents with euthymic mood and congruent affect.
--- NOTE | 2021-12-15 14:29 | NUR ---
Report given to Christine man [facility], [place]. Pt. signed the discharge papers.
--- NOTE | 2021-12-15 15:25 | NUR ---
Pt. left the unit via ambulance and transported via a gurney with belongings. Pt. without distress, v/s taken: BP 153/70, VA 81, RR 18, temp 97.7 and oxygen sat 96%.
== END 2021-12-15 15:25 | DRG 885 ==
LOC: GPS 04:38
PROVIDERS: ADMIT Psychiatry & Neurology Psychosomatic Medicine; ATTEND Nurse Practitioner Acute Care
DX: F25.0 Schizoaffective disorder, bipolar type (principal); U07.1 COVID-19; E44.1 Mild protein-calorie malnutrition; R45.851 Suicidal ideations; F09 Unspecified mental disorder due to known physiological condition; E88.09 Other disorders of plasma-protein metabolism, not elsewhere classified; I10 Essential (primary) hypertension; Z91.19 Patient's noncompliance with other medical treatment and regimen
CPT/HCPCS: 36415; 71045-TC; 73030-TC; 73630-TC; 80053-TC; 80061-TC; 80164-TC; 82962-TC; 85025-TC; 87081-TC; U0003